=== PATIENT | female | born 1960 | race Caucasian/White ===

== ENCOUNTER 2017-08-01 15:30 | Emergency (ER) | payer OTHER ==
[~2017-08-01] VITALS: Ht 167.6 cm; Wt 81.6 kg
[~2017-08-01 15:30] MED LIST: CLINDAMYCIN300 MG PO; MOTRIN800 MG PO; ZITHROMAX TRI-500 MG PO
[2017-08-01 16:20] LABS: ABSOLUTE BASOPHIL COUNT 0 /CUMM (0.0-0.2); ABSOLUTE EOSINOPHIL COUNT 0.2 /CUMM (0.0-0.7); ABSOLUTE GRANULOCYTE CT 4.9 /CUMM (1.4-6.5); ABSOLUTE LYMPH COUNT 1.9 /CUMM (1.2-3.4); ABSOLUTE MONOCYTE COUNT 0.4 /CUMM (0.10-0.60); BASOPHIL % 0.6 % (0.0-2.0); EOSINOPHIL % 2.5 % (0-5); GRANULOCYTE % 66.5 % (42.2-75.2); HEMATOCRIT 40.4 % (37-47); MEAN CORPUSCULAR HGB 30.5 PG (27.0-31.0); MEAN CORPUSCULAR HGB CONC 33.3 G/DL (33.0-37.0); MEAN CORPUSCULAR VOLUME 91.4 FL (81.0-99.0); MEAN PLATELET VOLUME 8.7 FL (7.4-10.4); PLATELET COUNT 291 /CUMM (130-400); RBC DISTRIBUTION WIDTH 13.1 % (11.5-14.5); RED BLOOD CELL CT 4.42 /CUMM (4.20-5.40); WHITE BLOOD CELL COUNT 7.4 /CUMM (4.8-10.8)
--- NOTE | 2017-08-01 18:25 | ED HAND/WRIST INJURY COMPLAINT ---
History of Present Illness General Chief Complaint: General Adult Stated Complaint: RED AND ITCHY FINGER Source: patient Exam Limitations: no limitations Vital Signs & Intake/Output Vital Signs & Intake/Output Vital Signs Date Time Temp Pulse Resp B/P B/P Pulse O2 O2 Flow FiO2 Mean Ox Delivery Rate 08/01 1533 98.5 90 15 125/74 94 Room Air Room Air Allergies Coded Allergies: Penicillins (UNKNOWN 08/01/17) Reconcile Medications Azithromycin (Zithromax Tri-Pawan) 500 MG TAB 1 TAB PO DAILY SINUSITIS CLINDAMYCIN HCL (Clindamycin HCl) 300 MG CAP 1 TAB PO TID . Ibuprofen (Motrin) 800 MG TAB 1 TAB PO Q6HR PRN PAIN Triage Nurses Notes Reviewed? yes HPI: 57F no PMH with 2 days of spreading right second finger and hand erythema. Patient had an itch around her second MCP 2 days ago and was scratching it, now the area is erythematous and inflamed causing pain, with a white pustule present over the finger. She reports pruritis to the area. She denies fever, chills, headache, lightheadedness, sore throat, chest pain, SOB, abdominal pain, diarrhea, dysuria. She does not recall being bitten by anything. She went to a [employer] 8 days ago. Past History Travel History Traveled to [place] past 21 day No Medical History Any Pertinent Medical History? see below for history Neurological: NONE EENT: NONE Cardiovascular: hyperlipidemia Respiratory: NONE Gastrointestinal: NONE Hepatic: NONE Renal: NONE Musculoskeletal: NONE Psychiatric: anxiety Endocrine: NONE Blood Disorders: NONE Cancer(s): NONE ASSISTANT CASE MANAGER/Reproductive: NONE Surgical History Surgical History: non-contributory Psychosocial History What is your primary language Telugu Tobacco Use: Current Daily Use Daily Tobacco Use Amount/Type: => 5 Cigarettes daily ETOH Use: denies use Illicit Drug Use: denies illicit drug use Family History Hx Contributory? No Review of Systems Review of Systems Constitutional: Reports: no symptoms. EENTM: Reports: no symptoms. Respiratory: Reports: no symptoms. Cardiovascular: Reports: no symptoms. GI: Reports: no symptoms. Genitourinary: Reports: no symptoms. Musculoskeletal: Reports: no symptoms. Skin: Reports: no symptoms. Neurological/Psychological: Reports: no symptoms. Hematologic/Endocrine: Reports: no symptoms. Immunologic/Allergic: Reports: no symptoms. All Other Systems: Reviewed and Negative Physical Exam Physical Exam General Appearance: well developed/nourished, mild distress Head: atraumatic Eyes: Bilateral: normal appearance. Ears, Nose, Throat: normal ENT inspection, hearing grossly normal Neck: normal inspection, supple Cardiovascular/Respiratory: normal breath sounds, regular rate/rhythm Back: normal inspection, normal range of motion Wrist Left: normal range of motion, normal inspection Wrist Right: normal range of motion, normal inspection Hand Left: normal inspection, normal range of motion Hand Right: erythema to right second finger, MCP, and hand with pustule present Skin: intact, normal color, warm/dry Lymphatic: no anterior cervical gorge Progress Differential Diagnosis: abscess, cellulitis, contusion, compartment syndrome, dislocation, felon, fracture, gout, paronychia, septic arthritis, sprain, tenosynovitis Plan of Care: Orders Procedure Date/time Status BLOOD CULTURE 08/02 1535 Active COMPREHENSIVE METABOLIC PANEL 08/01 153 Complete CBC WITHOUT DIFFERENTIAL 08/02 1535 Complete Laboratory Tests 08/01/17 155: Anion Gap 12, Estimated GFR > 60, BUN/Creatinine Ratio 22.9, Glucose 96, Calcium 9.7, Total Bilirubin 0.5, AST 27, ALT 36, Alkaline Phosphatase 51, Total Protein 7.4, Albumin 4.8, Globulin 2.6, Albumin/Globulin Ratio 1.8, CBC w Diff NO MAN DIFF REQ, RBC 4.42, MCV 91.4, MCH 30.5, MCHC 33.3, RDW 13.1, MPV 8.7, Gran % 66.5, Lymphocytes % 25.3, Monocytes % 5.1, Eosinophils % 2.5, Basophils % 0.6, Absolute Granulocytes 4.9, Absolute Lymphocytes 1.9, Absolute Monocytes 0.4, Absolute Eosinophils 0.2, Absolute Basophils 0 Microbiology 08/01 155 BLOOD: Blood Culture - RECD 08/02 1551 BLOOD: Blood Culture - RECD Diagnostic Imaging: Viewed by Me: MRI. Discussed w/RAD: MRI. Radiology Impression: PATIENT: MICHELLE PHILLIPS PRESENT AGE: 57 PATIENT ACCOUNT NO: [id number] : 62 LOCATION: [facility] ORDERING PHYSICIAN: Justice Lane MD SERVICE DATE: 08/01/17-1552 EXAM TYPE: MRI - MRI-RT HAND W/O KRISH EXAMINATION: MRI OF THE RIGHT HAND WITHOUT CONTRAST CLINICAL INFORMATION: Cellulitis and abscess of the second finger. Concern for osteomyelitis or septic joint. COMPARISON: None TECHNIQUE: High-field magnet used. Multiple sequences were obtained of the hand with [id number] around the second and third digit. Portions of the ring finger also included on some sequences. The area of concern was marked with a skin marker which is at the web space between the second and third digits at the dorsum of the hand. No contrast given. FINDINGS: There is normal T1 and T2 signal of the bones of the second and third finger from the head of the metacarpals through the distal phalanges. There is no evidence for osteomyelitis. There is no focal fluid collection. No abscess. No fluid collections around the joints. The visualized sequences through the Ring finger are normal. IMPRESSION: Normal MRI of the index and middle finger. No evidence for osteomyelitis or septic joint. DICTATED BY: Christopher Moreno MD DATE/TIME DICTATED:08/01/171816 PROGRAMMING INSTRUCTOR:NEO DATE/ TIME TRANSCRIBED:08/01/171816 Departure Departure Disposition: HOME OR SELF CARE Condition: Stable Clinical Impression Primary Impression: Cellulitis of right hand Secondary Impressions: Abscess of right hand Referrals: Unknown Additional Instructions: Use warm compresses and keep the hand elevated. FInish your antibiotic course. IF you notice the redness or pain spreading, or any new or worsening symptoms, returnt o ER. Departure Forms: Customer Survey General Discharge Information Prescriptions: Current Visit Scripts Clindamycin HCl 1 CAP PO TID #30 CAP
[2017-08-01] MEDS ORDERED: CLINDAMYCIN HC300 M1 PO (18:46)
[2017-08-01 18:58] VITALS: BP 110/80
== END 2017-08-01 19:02 ==
LOC: ERH 15:30
PROVIDERS: Internal Medicine
DX: L02.511 Cutaneous abscess of right hand (principal); L03.113 Cellulitis of right upper limb
CPT/HCPCS: 75641; 87040